=== PATIENT | female | born 1985 | race Caucasian/White ===

== ENCOUNTER 2023-12-30 11:18 | Emergency (ER) | payer OTHER ==
[2023-12-30 11:29] VITALS: BP 129/72; PULSE 68; RESP 18; TEMP 98; BMI 24.5
[2023-12-30] MEDS ORDERED: KETOROLAC TROMETHAMINE 30 MG/1 ML VIAL ONE (12:06)
[2023-12-30] MEDS ORDERED: ACETAMINOPHEN 500 MG TABLET (FP) ONE (12:07)
[2023-12-30] MEDS: ACETAMINOPHEN 500 MG TABLET (FP) PO ONE (12:10)
[2023-12-30] MEDS: KETOROLAC TROMETHAMINE 30 MG/1 ML VIAL IM ONE (12:11)
== END 2023-12-30 13:40 | disposition home or self-care (01) ==
LOC: JERFT 11:18
PROC: 3E0233Z Introduction of Anti-inflammatory into Muscle, Percutaneous Approach (ICD-10-PCS; principal; 2023-12-30)
DX: S59.902A Unspecified injury of left elbow, initial encounter (principal); M25.522 Pain in left elbow; W01.0XXA Fall on same level from slipping, tripping and stumbling without subsequent striking against object, initial encounter
CPT/HCPCS: 73070-TC-LT-FY; 73090-TC-LT-FY; 96372; 99284-25